=== PATIENT | female | born 1965 | race Caucasian/White ===

== ENCOUNTER 2016-09-01 12:50 | Emergency (ER) | payer SELFPAY ==
[2016-09-01 14:03] VITALS: BP 125/80
--- NOTE | 2016-09-01 14:25 | RAD ---
Left knee with patella, 4 views, 09/01/2016: History: Fall, injury No fracture or dislocation is identified. There is mild degenerative change at the patellofemoral articulation. IMPRESSION: No acute bony abnormality is detected.
--- NOTE | 2016-09-01 14:38 | PHYS DOC ---
Past Medical History Past Medical History: Asthma Past Surgical History: Hysterectomy, Tubal ligation, Other Additional Past Surgical Histo: ovary surgery, bladder surgery Alcohol Use: Rarely Drug Use: None Adult General Chief Complaint Chief Complaint: MECHANICAL FALL HPI HPI Patient is a 51 year old female presents emergency department stating that she was walking up or porch last night when she slipped and fell. She states that she had injured her left knee. She states she has increased pain with ambulation. She states that the pain is mainly on the left lateral portion of her leg. She states that she does have some numbness and tingling down her lower extremity. She has been able to ambulate and take Tylenol for the pain and discomfort. She states Tylenol has not helped with the pain. He states that she has not had any previous issues with the leg in the past. Review of Systems Review of Systems Constitutional: Denies fever or chills [] Eyes: Denies change in visual acuity, redness, or eye pain [] HENT: Denies nasal congestion or sore throat [] Respiratory: Denies cough or shortness of breath [] Cardiovascular: No additional information not addressed in HPI [] GI: Denies abdominal pain, nausea, vomiting, bloody stools or diarrhea [] : Denies dysuria or hematuria [] Musculoskeletal: Denies back pain. When the left knee pain and discomfort. Integument: Denies rash or skin lesions [] Neurologic: Denies headache, focal weakness or sensory changes [] Allergies Allergies Allergies Coded Allergies Type Severity Reaction Last Updated Verified egg Allergy Severe Swelling 10/05/14 No Penicillins Allergy Intermediate 10/05/14 No morphine Allergy Mild Nausea and Vomiting 10/05/14 No Physical Exam Physical Exam Constitutional: Well developed, well nourished, no acute distress, non-toxic appearance. [] HENT: Normocephalic, atraumatic, bilateral external ears normal, oropharynx moist, no oral exudates, nose normal. [] Eyes: PERRLA, EOMI, conjunctiva normal, no discharge. [] Neck: Normal range of motion, no tenderness, supple, no stridor. [] Cardiovascular:Heart rate regular rhythm, no murmur [] Lungs & Thorax: Bilateral breath sounds clear to auscultation [] Skin: Warm, dry, no erythema, no rash. [] Back: No tenderness Extremities: Complaint of left knee with lateral tenderness, no cyanosis, no clubbing, ROM intact, no edema. No bruising or discoloration noted. Positive valgus negative Marte negative Aicha. Neurologic: Alert and oriented X 3, normal motor function, normal sensory function, no focal deficits noted. [] Psychologic: Affect normal, judgement normal, mood normal. [] Current Patient Data Vital Signs Vital Signs Date Time Temp Pulse Resp B/P Pulse Ox O2 Delivery O2 Flow Rate FiO2 09/01/16 14:03 97.9 90 18 97 Room Air 97.9 EKG EKG [] Radiology/Procedures Radiology/Procedures [][facility] [address] [place], [place] [id number] IMAGING REPORT Signed PATIENT: NEMESIO BEYER ACCOUNT: [id number] : 1965 LOCATION: ER AGE: 51 SEX: F EXAM STATUS: REG ER ORD. PHYSICIAN: ANGELICA BOOKER NP REASON: fell yesterday PROCEDURE: KNEE LEFT 4V Left knee with patella, 4 views, 09/01/2016: History: Fall, injury No fracture or dislocation is identified. There is mild degenerative change at the patellofemoral articulation. IMPRESSION: No acute bony abnormality is detected. DICTATED and SIGNED BY: KRISTINA ROBLERO MD DATE: 09/01/16 1422 CC: ANGELICA BOOKER [facility]; NO PCP ~ Course & Med Decision Making Course & Med Decision Making Pertinent Labs and Imaging studies reviewed. (See chart for details) X-ray was negative for any bony abnormalities. Patient will be placed in a knee immobilizer with recommendations to follow-up with Dr. Trivedi. Ice packs on 20 minutes off 20 minutes several times a day elevation as much as possible. Tylenol and ibuprofen for pain and discomfort. Patient will be discharged home in stable condition since symptoms to return back to emergency department has been provided. Patient agrees with discharge instructions treatment regimens and follow-up recommendations. [] Dragon Disclaimer Dragon Disclaimer This electronic medical record was generated, in whole or in part, using a voice recognition dictation system. Departure Departure Impression: Primary Impression: Left knee pain Additional Impression: Fall Disposition: HOME, SELF-CARE Condition: STABLE Referrals: NO PCP (PCP) MARGARET TRIVEDI MD Patient Instructions: Fall Prevention and Home Safety, [id number], Knee Immobilizer, [id number], Knee Pain, [id number] Additional Instructions: Activity as tolerated. Tylenol and ibuprofen for pain and discomfort. Ice packs on 20 minutes off 20 minutes several times a day. Elevation as much as possible. With a knee immobilizer until you follow up with orthopedic. Follow-up with orthopedic within the next week. Return back to emergency prior signs symptoms of become worse. Problem Qualifiers ANGELICA BOOKER NP Sep 01, 2016 14:38
== END 2016-09-01 15:01 | disposition home or self-care (01) ==
LOC: ER 12:50
DX: M25.562 Pain in left knee (principal); J45.909 Unspecified asthma, uncomplicated; Z88.5 Allergy status to narcotic agent; Z88.0 Allergy status to penicillin; Z91.012 Allergy to eggs; W01.0XXA Fall on same level from slipping, tripping and stumbling without subsequent striking against object, initial encounter; Y93.89 Activity, other specified; Y92.89 Other specified places as the place of occurrence of the external cause; Y99.8 Other external cause status
CPT/HCPCS: 29505; 73564; 99284-25

== ENCOUNTER 2019-04-24 15:43 | Emergency (ER) | payer SELFPAY ==
[~2019-04-24] VITALS: Ht 170.2 cm; Wt 90.7 kg
[2019-04-24 15:44] VITALS: BP 150/108
[2019-04-24] MEDS ORDERED: KETOROLAC 30 MG/ML VIAL. IM STA (16:40)
[2019-04-24] MEDS ORDERED: ORPHENADRINE CITRATE 60 MG/2 ML VIAL. IM ONE (16:45)
--- NOTE | 2019-04-24 16:50 | PHYS DOC ---
Past Medical History Past Medical History: Asthma Past Surgical History: Hysterectomy, Tubal ligation, Other Additional Past Surgical Histo: ovary surgery, bladder surgery Alcohol Use: Rarely Drug Use: None Adult General Chief Complaint Chief Complaint: BACK PAIN OR INJURY HPI HPI Patient is a 54 year old female that presents after falling down concrete steps onto a concrete pad 4 weeks ago. She states that she fell her lumbar and th oracic spine started hurting. States the pain is progressively gotten worse and that she started having pain shooting down bilateral legs. Rates her pain as 9 out of 10 in severity and sharp that she's been taking Tylenol at home. Denies incontinence. Review of Systems Review of Systems Constitutional: Denies fever or chills [] Eyes: Denies change in visual acuity, redness, or eye pain [] HENT: Denies nasal congestion or sore throat [] Respiratory: Denies cough or shortness of breath [] Cardiovascular: No additional information not addressed in HPI [] GI: Denies abdominal pain, nausea, vomiting, bloody stools or diarrhea [] : Denies dysuria or hematuria. Denies incontinence. Musculoskeletal: Reports back pain radiating down bilateral legs. Integument: Denies rash or skin lesions [] Neurologic: Denies headache, focal weakness or sensory changes [] Endocrine: Denies polyuria or polydipsia [] Complete systems were reviewed and found to be within normal limits, except as documented in this note. Current Medications Current Medications Current Medications Medications (Trade) Dose Ordered Sig/Linda Start Time Stop Time Status Last Admin Dose Admin Ketorolac Tromethamine (Toradol 30mg Vial) 30 mg 1X STAT 04/24/19 16:40 04/24/19 16:42 DC 04/24/19 17:02 30 MG Orphenadrine Citrate (Norflex) 60 mg 1X ONCE 04/24/19 16:45 04/24/19 16:46 DC 04/24/19 17:02 60 MG Allergies Allergies Allergies Coded Allergies Type Severity Reaction Last Updated Verified egg Allergy Severe Swelling 10/05/14 No Penicillins Allergy Intermediate 10/05/14 No morphine Allergy Mild Nausea and Vomiting 10/05/14 No Physical Exam Physical Exam Constitutional: Well developed, well nourished, no acute distress, non-toxic appearance. [] HENT: Normocephalic, atraumatic, bilateral external ears normal, oropharynx moist, no oral exudates, nose normal. [] Eyes: PERRLA, EOMI, conjunctiva normal, no discharge. [] Neck: Normal range of motion, no tenderness, supple, no stridor. [] Abdomen: Bowel sounds normal, soft, no tenderness, no masses, no pulsatile masses. [] Skin: Warm, dry, no erythema, no rash. [] Back: Tenderness to T/L spine. No step-offs. Extremities: No tenderness, no cyanosis, no clubbing, ROM intact, no edema. [] Neurologic: Alert and oriented X 3, normal motor function, normal sensory function, no focal deficits noted. [] Psychologic: Affect normal, judgement normal, mood normal. [] Current Patient Data Vital Signs Vital Signs Date Time Temp Pulse Resp B/P (MAP) Pulse Ox O2 Delivery O2 Flow Rate FiO2 04/24/19 15:44 97.2 99 14 150/108 (122) 96 Room Air 97.2 EKG EKG [] Radiology/Procedures Radiology/Procedures [][facility] [address] [place] [address] IMAGING REPORT Signed PATIENT: NEMESIO BEYER ACCOUNT: [id number] : 1965 LOCATION: ER AGE: 54 SEX: F EXAM STATUS: REG ER ORD. PHYSICIAN: EVERT ELLIS APRN REASON: FELL 4 WEEKS AGO, BACK PAIN PROCEDURE: CT LUMBAR SPINE WO CONTRAST Exam: CT thoracic and lumbar spine without contrast INDICATION: Fall 4 weeks prior TECHNIQUE: Sequential axial images through the thoracic and lumbar spine obtained without IV contrast. Sagittal and coronal reformatted images were reconstructed from the axial data and reviewed. Comparisons: None FINDINGS: Thoracic spine: Vertebral body heights and alignment are well-maintained. Fracture to the thoracic spine is not identified. No significant spondylotic change in the thoracic spine. Visualized paraspinal soft tissues are unremarkable. Lumbar spine: Vertebral body heights and alignment are well-maintained. Fracture to the lumbar spine is not identified. L1-L2: Mild broad-based disc bulge without significant neural foraminal or spinal canal stenosis. L2-L3: Broad-based disc bulge, ligament flavum thickening and facet arthropathy causing mild spinal canal stenosis without significant neural foraminal stenosis. L3-4: Mild broad-based disc bulge, ligament flavum thickening causing mild spinal canal stenosis. No significant neuroforaminal stenosis. L4-L5: Broad-based disc bulge, ligament flavum thickening causing mild to moderate spinal canal stenosis. No significant neuroforaminal stenosis. L5-S1: Broad-based disc bulge somewhat eccentric to the left likely abutting the descending left S1 nerve. No significant neural foraminal stenosis. Several 2 to 3 mm nonobstructing renal calculi are noted bilaterally. Incompletely evaluated hyperattenuating cystic lesion at the upper pole of the left kidney measuring 2.2 cm. IMPRESSION: 1. Negative CT T spine for acute traumatic injury. 2. Negative CT L-spine for acute traumatic injury. 3. Nonobstructing renal calculi 4. A 2.2 cm hypoattenuating cystic lesion at the upper pole of the left kidney which is incompletely characterized on this exam, mildly increased in size compared to study in 2015. This is still likely represents a benign simple cyst, however further evaluation with renal protocol CT or MRI is recommended on nonemergent basis. Exposure: One or more of the following in the visualized dose reduction techniques were utilized for this examination: 1. Automated exposure control 2. Adjustment of the MA and/or KV according to patient size 3. Use of iterative of reconstructive technique Electronically signed by: Minnie Duggan MD (04/24/2019 5:11 PM) [id number] DICTATED and SIGNED BY: MINNIE DUGGAN MD DATE: 04/24/19 0495 Course & Med Decision Making Course & Med Decision Making Pertinent Labs and Imaging studies reviewed. (See chart for details) Will give supportive care and get CT scan of T/L. CT scan shows bulging discs, will have follow up with Neurosurgery. Dragon Disclaimer Dragon Disclaimer This electronic medical record was generated, in whole or in part, using a voice recognition dictation system. Departure Departure Impression: Primary Impression: Back pain Disposition: 01 HOME, SELF-CARE Condition: STABLE Referrals: NO PCP (PCP) JENSEN AGUILAR MD Patient Instructions: Back Pain, Adult Additional Instructions: Thank you for visiting [facility]. We appreciate you trusting us with your care. If any additional problems come up don't hesitate to return to visit us. Please follow up with your primary care provider so they can plan additional care if needed and know about the problem that you had. If symptoms worsen come back to the Emergency Department. Any concerning symptoms that start such as chest pain, shortness of air, weakness or numbness on one side of the body, running high fevers or any other concerning symptoms return to the ER. Scripts Ondansetron (ONDANSETRON ODT) 4 Mg Tab.rapdis 1 TAB PO PRN Q6-8HRS PRN for NAUSEA, #16 TAB Prov: EVERT ELLIS APRN 04/24/19 Hydrocodone/Apap 5-325 (NORCO 5-325 TABLET) 1 Each Tablet 1 TAB PO PRN Q6HRS PRN for PAIN for 3 Days, #10 TAB 0 Refills Prov: EVERT ELLIS APRN 04/24/19 Problem Qualifiers Primary Impression: Back pain Back pain location: low back pain Chronicity: acute Back pain laterality: bilateral Sciatica presence: with sciatica Sciatica laterality: bilateral sciatica Qualified Codes: M54.42 - Lumbago with sciatica, left side; M54.41 - Lumbago with sciatica, right side EVERT ELLIS APRN Apr 24, 2019 16:50
--- NOTE | 2019-04-24 17:14 | RAD ---
Exam: CT thoracic and lumbar spine without contrast INDICATION: Fall 4 weeks prior TECHNIQUE: Sequential axial images through the thoracic and lumbar spine obtained without IV contrast. Sagittal and coronal reformatted images were reconstructed from the axial data and reviewed. Comparisons: None FINDINGS: Thoracic spine: Vertebral body heights and alignment are well-maintained. Fracture to the thoracic spine is not identified. No significant spondylotic change in the thoracic spine. Visualized paraspinal soft tissues are unremarkable. Lumbar spine: Vertebral body heights and alignment are well-maintained. Fracture to the lumbar spine is not identified. L1-L2: Mild broad-based disc bulge without significant neural foraminal or spinal canal stenosis. L2-L3: Broad-based disc bulge, ligament flavum thickening and facet arthropathy causing mild spinal canal stenosis without significant neural foraminal stenosis. L3-4: Mild broad-based disc bulge, ligament flavum thickening causing mild spinal canal stenosis. No significant neuroforaminal stenosis. L4-L5: Broad-based disc bulge, ligament flavum thickening causing mild to moderate spinal canal stenosis. No significant neuroforaminal stenosis. L5-S1: Broad-based disc bulge somewhat eccentric to the left likely abutting the descending left S1 nerve. No significant neural foraminal stenosis. Several 2 to 3 mm nonobstructing renal calculi are noted bilaterally. Incompletely evaluated hyperattenuating cystic lesion at the upper pole of the left kidney measuring 2.2 cm. IMPRESSION: 1. Negative CT T spine for acute traumatic injury. 2. Negative CT L-spine for acute traumatic injury. 3. Nonobstructing renal calculi 4. A 2.2 cm hypoattenuating cystic lesion at the upper pole of the left kidney which is incompletely characterized on this exam, mildly increased in size compared to study in 2015. This is still likely represents a benign simple cyst, however further evaluation with renal protocol CT or MRI is recommended on nonemergent basis. Exposure: One or more of the following in the visualized dose reduction techniques were utilized for this examination: 1. Automated exposure control 2. Adjustment of the MA and/or KV according to patient size 3. Use of iterative of reconstructive technique Electronically signed by: Minnie Fischer MD (04/24/2019 5:11 PM) [facility]
[2019-04-24] MEDS ORDERED: HYDR-3164 PO (17:55)
[2019-04-24] MEDS ORDERED: ONDA4TAB12 PO (17:56)
[2019-04-24] MEDS ORDERED: fentaNYL PF VIAL 100 MCG/2 ML VIAL IM ONE (18:00)
== END 2019-04-24 18:08 | disposition home or self-care (01) ==
LOC: ER 15:43
DX: M54.42 Lumbago with sciatica, left side (principal); M54.41 Lumbago with sciatica, right side; J45.909 Unspecified asthma, uncomplicated; Z88.5 Allergy status to narcotic agent; Z88.0 Allergy status to penicillin; Z91.012 Allergy to eggs; Z90.710 Acquired absence of both cervix and uterus; Z98.51 Tubal ligation status
CPT/HCPCS: 72128; 72131; 96372; 99284; J1885; J2360; J3010

== ENCOUNTER → 2019-09-15 | Outpatient (CLI) | payer MEDICAID ==
[~2019-09-15] MED LIST: HYDR-3164 PO; ONDA4TAB12 PO
--- NOTE | 2019-09-19 08:38 | RAD ---
History: Routine screening. Technique: Bilateral digital mammographic routine views were obtained with CAD - computer aided detection. Comparison: None. By report, last mammogram was in 2006. This will serve as a new baseline. Findings: Breast Tissue Density B :The breast tissue is composed of mixed fatty and fibroglandular tissue. There are no suspicious masses, microcalcifications or areas of architectural distortion. Benign nodular parenchymal pattern. Impression: Benign findings on screening mammogram. BI-RADS Category 2: Benign. Recommend screening in 1 year. A mammogram does not have 100% sensitivity and therefore a negative imaging study should not delay further work up of a suspicious abnormality. The patient will receive a letter with the results in the mail. Patient information is entered into the reminder system with a target due date for the next screening mammogram. The patient will receive a reminder. "Our facility is accredited by the [employer] Mammography Program."
== END | disposition home or self-care (01) ==
LOC: MAMMO 10:15
PROVIDERS: ATTEND Family Medicine
DX: Z12.31 Encounter for screening mammogram for malignant neoplasm of breast (principal)
CPT/HCPCS: 77067

== ENCOUNTER → 2020-10-04 | Outpatient (CLI) | payer MEDICAID ==
--- NOTE | 2020-10-04 15:02 | RAD ---
Examination: 1. Bilateral digital diagnostic mammogram. 2. Limited left breast ultrasound. INDICATION: 55-year-old woman with bilateral diffuse breast tenderness and left nipple yellow dischar ge. This follows having recently begun contraceptive medication. COMPARISON: None. This will serve as a baseline. TECHNIQUE: CC and MLO views of both breasts were obtained with 2-D technique and reviewed with comput er-aided detection. Targeted ultrasound of the subareolar left breast was subsequently performed. FINDINGS: Heterogeneously dense breast parenchyma. No dominant mass, architectural distortion or suspicious chandra cifications. Targeted ultrasound of the subareolar left breast shows sonographically benign subareolar ducts and c ysts with no dominant mass or suspicious sonographic findings. IMPRESSION: Benign findings on bilateral mammogram and targeted left breast ultrasound. No evidence of malignancy . No specific imaging correlate to the patient's complaints of bilateral breast pain and left nipple discharge. BI-RADS Category 2 Benign findings Recommend clinical management for bilateral breast discomfort and left nipple discharge. If there are any clinically suspicious findings, they should be considered for biopsy even in the absence of any imaging correlate. If there are no clinically suspicious findings, then routine screening next due in one year is recommended. Electronically signed by: Diego Leon MD (10/04/2020 3:00 PM) [id number]
== END ==
LOC: MAMMO 12:44
PROVIDERS: ATTEND Family Medicine
DX: N64.52 Nipple discharge (principal); N64.4 Mastodynia
CPT/HCPCS: 76641; 77066

== ENCOUNTER → 2020-10-26 | Outpatient (CLI) | payer MEDICAID ==
--- NOTE | 2020-10-26 09:15 | RAD ---
EXAM: Abdomen sonogram. HISTORY: Pain. TECHNIQUE: Sonographic imaging of the abdomen was performed. COMPARISON: None. FINDINGS: The liver is upper normal in size. There is hepatic steatosis. No focal hepatic lesion is s een. The common bile duct is obscured. The gallbladder is unremarkable. The kidneys are normal in siz e. There is no hydronephrosis. There is a 2.0 cm simple appearing cyst within the superior left kidne y. The spleen is mildly enlarged, measuring 13.1 cm. The pancreas is partially obscured due to bowel gas. The aorta and inferior cava are unremarkable. IMPRESSION: 1. Hepatic steatosis and upper normal liver size. 2. Mild splenomegaly. 3. 2.0 cm simple appearing cyst within the left kidney. Follow-up is not routinely performed for simp le cysts. Electronically signed by: Seble Renee MD (10/26/2020 9:13 AM) [id number]
== END ==
LOC: US 09:27
PROVIDERS: ATTEND Family Medicine
DX: K76.0 Fatty (change of) liver, not elsewhere classified (principal); R16.1 Splenomegaly, not elsewhere classified
CPT/HCPCS: 76700

== ENCOUNTER → 2021-05-23 | Outpatient (CLI) | payer MEDICAID ==
--- NOTE | 2021-05-23 10:38 | RAD ---
EXAM: Pelvis and left hip, 3 views. HISTORY: Pain. COMPARISON: None. FINDINGS: A frontal view the pelvis and 2 views of the left hip are obtained. There is moderate left hip joint space narrowing. There is severe marginal left femoral head spurring. There is flattening o f the superior articular aspect of the left femoral head. The right femoral head is normal in configu ration. IMPRESSION: 1. Severe osteoarthritis of the left hip with associated flattening of the superior articular aspect of the femoral head. 2. No acute osseous finding. Electronically signed by: Seble Renee MD (05/23/2021 10:35 AM) [id number]
== END ==
LOC: RAD 09:36
PROVIDERS: ATTEND Family Medicine
DX: M16.12 Unilateral primary osteoarthritis, left hip (principal); M76.892 Other specified enthesopathies of left lower limb, excluding foot
CPT/HCPCS: 73502

== ENCOUNTER → 2021-05-29 | Outpatient (CLI) | payer MEDICAID ==
--- NOTE | 2021-05-29 13:15 | RAD ---
EXAM: 1. LUMBAR SPINE 3 VIEWS. 2. FRONTAL PELVIS WITH TWO-VIEW RIGHT HIP. HISTORY: Low back and right hip pain COMPARISON: 10/05/2014. FINDINGS: There is a mild lumbar levocurvature. Vertebral body heights are maintained, and no fractur es are identified. Intervertebral disc heights are maintained. Osteopenia appears at least mild. Calcific densities in the right upper quadrant are consistent with calcified right lower lobe granulo mas and phleboliths on CT. There are atherosclerotic calcifications of the aorta. No fractures are appreciated within the pelvis. There is mild flattening of the superior articular mosqueda rface of the left femoral head with moderate osteophytosis. The superior joint space is moderately to severely narrowed. The joint spaces and alignment of the right hip are maintained. There are suture lines along both pelvic sidewalls, likely reflecting bilateral ovarian kidney. IMPRESSION: 1. No lumbar fracture or clear degenerative change for patient age. 2. Moderate left hip osteoarthritis. Mild flattening of the superior aspect of the left femoral head suggests prior avascular necrosis with mild articular surface collapse. 3. No clear degenerative change at the right hip. Electronically signed by: Annel Cleveland MD (05/29/2021 1:12 PM) [id number]
== END ==
LOC: RAD 09:51
PROVIDERS: ATTEND Family Medicine
DX: M43.8X6 Other specified deforming dorsopathies, lumbar region (principal); M85.88 Other specified disorders of bone density and structure, other site; M16.12 Unilateral primary osteoarthritis, left hip; I70.0 Atherosclerosis of aorta
CPT/HCPCS: 72100; 73502

== ENCOUNTER → 2021-08-05 | Outpatient (CLI) | payer MEDICAID ==
[~2021-08-05] MED LIST changes: +ALEN70TA71 PO; +ALPR0.5T6 PO; +CRESTOR5 MG PO; +DICL20GE TP; +NAPR-683 PO; +PREG150C PO; +SERT50TA PO; +TRAZ-118 PO; +VENTOLIN HFA18 GM INH
[2021-08-05 09:16] LABS: ALBUMIN 3.8 g/dL (3.4-5.0); ALBUMIN/GLOBULIN RATIO 1.2 (1.0-1.7); CALCIUM 8.7 mg/dL (8.5-10.1); CREATININE 0.8 mg/dL (0.6-1.0); GFR 74.2; POTASSIUM 4.1 mmol/L (3.5-5.1); TOTAL BILIRUBIN 0.4 mg/dL (0.2-1.0)
--- NOTE | 2021-08-05 12:06 | EKG ---
[facility] [address] [place] [address] Test Date: 2021-08-05 Test Time: 11:40:39 Pat Name: CHEL BEYER Department: Room: Gender: F [employer]: : 1965 Requested By: SIM PAIGE Order Number: [id number] Reading MD: Jonathan Sosa MD Measurements Intervals [place] Rate: 54 P: 36 [place]: 202 QRS: 35 QRSD: 84 T: 47 QT: 442 QTc: 421 Interpretive Statements SINUS RHYTHM Electronically Signed On 08-08-2021 10:26:39 BUSINESS LIAISON MANAGER by Jonathan Sosa MD
== END ==
LOC: LAB 12:07
PROVIDERS: ATTEND Family Medicine
DX: Z01.818 Encounter for other preprocedural examination (principal); G31.84 Mild cognitive impairment of uncertain or unknown etiology
CPT/HCPCS: 36415; 80053; 82607; 82746; 84443; 93005

== ENCOUNTER → 2021-08-05 | Outpatient (CLI) | payer MEDICAID ==
[2021-08-05 10:22] LABS: BASO % 1 % (0-3); EOS # 0.1 x10^3/uL (0.0-0.7); EOS % 3 % (0-3); HEMATOCRIT 38.3 % (36.0-47.0); HEMOGLOBIN 12.6 g/dL (12.0-15.5); LYMPH # 1.2 x10^3/uL (1.0-4.8); LYMPH % 25 % (24-48); MEAN CORPUSCULAR HEMOGLOBIN 28 pg (25-35); MEAN CORPUSCULAR HGB CONC 33 g/dL (31-37); MEAN CORPUSCULAR VOLUME 87 fL (79-100); MONO # 0.3 x10^3/uL (0.0-1.1); MONO % 7 % (0-9); NEUT # 3.3 x10^3/uL (1.8-7.7); NEUT % 66 % (31-73); PLATELET COUNT 214 x10^3/uL (140-400); RED BLOOD COUNT 4.43 x10^6/uL (3.50-5.40); RED CELL DISTRIBUTION WIDTH 13.8 % (11.5-14.5)
[2021-08-05 10:33] LABS: PROTHROMBIN TIME PATIENT 13.2 SEC (11.7-14.0)
--- NOTE | 2021-08-05 12:33 | RAD ---
EXAM: Chest, 2 views. HISTORY: Hypertension. COMPARISON: None. FINDINGS: 2 views of the chest are obtained. There is no infiltrate, pleural effusion or pneumothorax . The heart is normal in size. IMPRESSION: No acute pulmonary finding. Electronically signed by: Seble Renee MD (08/05/2021 12:30 PM) [id number]
[2021-08-05 23:32] LABS: HEMOGLOBIN A1C 5.5 % (4.8-5.6)
== END ==
LOC: SURGPAT 12:01
PROVIDERS: ATTEND Orthopaedic Surgery
DX: M16.10 Unilateral primary osteoarthritis, unspecified hip (principal); Z01.818 Encounter for other preprocedural examination
CPT/HCPCS: 36415; 71046; 82040; 82306; 83036; 85025; 85610; 85651; 85730; 87641; 93005

== ENCOUNTER 2021-09-02 09:49 | Inpatient (IN) | payer MEDICAID ==
[2021-08-07 12:20] VITALS: BP 106/71
[2021-09-02] VITALS (10 sets, daily range): BP systolic 88–110; BP diastolic 54–68
[~2021-09-02] VITALS: Ht 175.3 cm; Wt 99.0 kg
[~2021-09-02 09:49] MED LIST changes: +ACETAMINOPHEN 500 MG TABLET PO PRN; +CLINDAMYCIN 900MG PREMIX 50 ML IV PRN; +GABAPENTIN 300 MG CAPSULE. PO PRN; +IV RINGERS,LACTATED 1000ML 1,000 ML IV SCH; +MELOXICAM 7.5 MG TABLET PO PRN; +PROCHLORPERAZINE 10 MG/2 ML VIAL. IVP PRN; +TRANEXAMIC ACID 1,000 MG in IV NS 50ML -- 1ST BAG INJ ONE; +TRANEXAMIC ACID 1,000 MG in IV NS 50ML -- 2ND BAG INJ ONE; +TV=62ml MORPHINE 5 MG, KETOROLAC 30 MG, ROPIV, EPI INT ART ONE; +fentaNYL PF VIAL 100 MCG/2 ML VIAL IVP PRN
[2021-09-02] MEDS ORDERED: VANCOMYCIN 1 GM VIAL. ONE (10:48)
[2021-09-02] MEDS ORDERED: TRANEXAMIC ACID in NS IVPB 100 ML ONE (10:48)
[2021-09-02] MEDS ORDERED: ROCURONIUM 50 MG/5 ML VIAL. ONE (10:53)
[2021-09-02] MEDS ORDERED: ONDANSETRON PF 4 MG/2 ML VIAL. ONE (10:53)
[2021-09-02] MEDS ORDERED: DEXAMETHASONE SOD PHOS 4 MG/ML VIAL ONE (10:53)
[2021-09-02] MEDS ORDERED: LIDOCAINE 2% PF 5 ML VIAL. ONE (10:53)
[2021-09-02] MEDS ORDERED: PROPOFOL 10 MG/ML (20ML) VIAL. IV ONE ×2 (10:53→10:56)
[2021-09-02] MEDS ORDERED: FAMOTIDINE 20 MG/2 ML VIAL ONE (10:54)
[2021-09-02] MEDS ORDERED: MIDAZOLAM HCL/PF 2 MG/2 ML VIAL. ONE (10:54)
[2021-09-02] MEDS ORDERED: fentaNYL PF VIAL 100 MCG/2 ML VIAL ONE ×2 (10:54→13:39)
--- NOTE | 2021-09-02 10:55 | HP ---
DATE OF SERVICE: 09/02/2021 ADMIT DATE: 09/02/2021 REASON FOR HISTORY AND PHYSICAL: Continued left hip pain, preop left total hip arthroplasty, seen last by Dr. Pagan with no acute changes according to the patient. She is a 56-year-old female who was complaining of continued and ongoing left hip pain. At the age of 13 or 14, she did undergo what sounds like an open reduction and internal fixation with pin fixation of a subcapital possible slipped capital femoral epiphysis fracture; however, this healed uneventfully, no big issues, but over the last 13 years, she has had increasing amounts of pain, especially with bending, twisting or even getting dressed at this point. She has only the prior pinning, which subsequent pins were removed at that point. REVIEW OF SYSTEMS: Unremarkable other than this left hip pain. MEDICAL HISTORY: Involves degenerative joint disease, asthma, fibromyalgia, depression, anxiety, PTSD, hemorrhoidectomy, colon resection. PAST SURGICAL HISTORY: Tonsillectomy, total abdominal hysterectomy, removal of ovary, bladder surgery, left hip pin placement, x 1. FAMILY HISTORY: Remarkable for diabetes, hypertension, mental illness and CVA. SOCIAL HISTORY: The patient has never used tobacco. Alcohol use is no. MEDICATIONS: Numerous, Crestor, esterase, sertraline, alprazolam, Naprosyn, methocarbamol, alendronate, trazodone, albuterol inhaler, Lyrica. MEDICATION ALLERGIES: PENICILLIN, MORPHINE, EGGS AND ABILIFY. PHYSICAL EXAMINATION: Today reveals no contracture of significance at this point, but only can flex up to 90 degrees, internal rotation is 0 degrees, external rotation is 0-5 degrees, abduction is only 15 and there is significant pain throughout the arc of motion at this point. No atrophy of musculature, right versus left and the distal neurovascular status is fully intact. IMPRESSION: Severe degenerative joint disease, left hip. PLAN: At this time, I have talked with the patient at length about treatment options, she wishes to go ahead today and undergo left total hip replacement. Dr. Pagan, her physician understands that as well and has agreed and has medically cleared her. We will proceed. SIMBA DR: Jarett TID: [id number]
[2021-09-02] MEDS: IV NORMAL SALINE 1000ML BAG 1,000 ML IV SCH ×2 (11:15→16:25)
[2021-09-02] MEDS ORDERED: CALCIUM CARBONATE 500 MG TAB.CHEW PO PRN (11:15)
[2021-09-02] MEDS ORDERED: fentaNYL PF VIAL 100 MCG/2 ML VIAL IVP PRN (11:15)
[2021-09-02] MEDS ORDERED: PROCHLORPERAZINE 5 MG TABLET. PO PRN (11:15)
[2021-09-02] MEDS ORDERED: METOCLOPRAMIDE HCL 10 MG/2 ML VIAL. IVP PRN (11:15)
[2021-09-02] MEDS ORDERED: 0.9 % SODIUM CHLORIDE 10 ML DISP.SYRIN. IV PRN (11:15)
[2021-09-02] MEDS ORDERED: DEXTROSE 50% 25 GM / 50ML DISP.SYRIN. IV PRN (11:15)
[2021-09-02] MEDS ORDERED: diphenhydrAMINE 50 MG/ML VIAL IVP PRN (11:15)
[2021-09-02] MEDS ORDERED: ZOLPIDEM 5 MG TABLET. PO PRN (11:15)
[2021-09-02] MEDS ORDERED: HYDROmorphone 2 MG/ML INJ. ONE (11:39)
[2021-09-02] MEDS ORDERED: GLYCOPYRROLATE 1 MG/5 ML VIAL. ONE (11:48)
[2021-09-02] MEDS ORDERED: NEOSTIGMINE METHYLSULFATE 5 MG/5 ML SYRINGE. ONE (11:48)
[2021-09-02] MEDS ORDERED: niCARdipine INJ. IV ONE (11:50)
[2021-09-02] MEDS ORDERED: 0.9 % SODIUM CHLORIDE 20 ML VIAL. IJ ONE (11:52)
[2021-09-02] MEDS: ONDANSETRON PF 4 MG/2 ML VIAL. IVP SCH ×2 (12:00→16:22)
[2021-09-02] MEDS: SENNOSIDES/DOCUSATE 8.6/50MG TABLET. PO SCH (12:00)
[2021-09-02] MEDS: MULTIVITAMIN with MINERAL TABLET. PO SCH (12:00)
[2021-09-02] MEDS: ONDANSETRON ODT 4 MG TAB.RAPDIS. PO SCH ×2 (12:00→18:00)
[2021-09-02] MEDS ORDERED: PHENYLEPHRINE in 0.9% NACL PF 1 MG/10 ML SYRINGE. IV ONE (12:10)
--- NOTE | 2021-09-02 13:35 | OP ---
DATE OF SURGERY: 09/02/2021 PREOPERATIVE DIAGNOSIS: Severe degenerative joint disease, left hip. POSTOPERATIVE DIAGNOSIS: Severe degenerative joint disease, left hip. PROCEDURE: Left total hip arthroplasty. SURGEON: Donnie Dean Jr, DO PAPER REEL OPERATOR: Tom Wu. ANESTHESIA: General. COMPLICATIONS: None. ESTIMATED BLOOD LOSS: 400 mL DESCRIPTION OF PROCEDURE: The patient was taken to the operative suite, placed in a lateral decubitus position with the affected hip upright. This was padded appropriately. The left hip was then prepped and draped in a sterile fashion. Standard anterolateral approach to the hip was undertaken. Incision was made through skin and subcutaneous tissues down to the iliotibial band, which was split in line with the skin incision. Scar was removed from all areas around the hip joint and capsule itself and the retraction was undertaken. Following this, the portion of the gluteus medius and minimus were removed from their insertion in the greater trochanter. This was approximately the lower 50% of the musculature. This was retracted anteriorly and the capsule was identified. Again, a significant amount of scar tissue was noted about the area; however, after appropriate retraction, the capsule was opened up in an H fashion carefully. The hip was then subsequently dislocated and then the femoral head was measured; however, the 48 was noted to be the smaller size whereas the head actually in the outer portion measured approximately 52. From that; however, the appropriate cut was made for the femur. This was removed. The remainder of the labral tissue was removed from the acetabulum and after that was done reaming began at size 46 and continued up to 2 mm increments and then 1 mm increments starting at 49 and 50 was noted to be the most appropriate size. Therefore, the hip prosthesis was then impacted and noted to be stable. Three screws, however, were placed for further fixation of the cup. Following this, the acetabular component was noted to be good and stable and in positioning and reinspected and irrigated and suctioned dry and then the polyethylene was impacted and noted to be secured. Attention was then directed to the femur. The hot box operator was used to open up the femoral canal. The IM guide was placed followed by broaching began at size 0 and continued up to size 5. The hip was then relocated, taken through full range of motion. The +2.5 was noted to be the most stable. Therefore, all this was removed, the actual component was placed and put in appropriate position at this point. After the trial was done again, this was again noted to be +2.5 mm. This was then subsequently relocated, noted to be very stable throughout extremes in the arc of motion with flexion, extension, internal and external rotation. Since this was noted to be stable and the head was already affixed and noted to be stable, this was thoroughly irrigated, iodine was used for first irrigation, second irrigation was to remove this all from the joint. The capsule was then reapproximated. The gluteus medius and minimus were reapproximated into the appropriate positions. The IT band was then reapproximated using running suture, followed by 3 intermittent sutures for reinforcement. Superficial tissues and skin was reapproximated. Sterile dressing was applied. The patient was then taken from the operative bed to the postoperative bed, taken to the PACU in stable condition. JULIANNA DR: Jarett TID: [id number]
[2021-09-02] MEDS ORDERED: PROCHLORPERAZINE 10 MG/2 ML VIAL. ONE (13:39)
--- NOTE | 2021-09-02 14:58 | RAD ---
AP pelvis radiograph to include AP radiograph of the left hip 09/02/2021 CLINICAL HISTORY: History of left hip surgery. An AP digital radiograph of pelvis to include both hips obtained. AP digital radiographs left hip was obtained. Patient is post left MAURILIO. The prosthetic components are intact. No fracture or dislocation is seen. IMPRESSION: Post left MAURILIO. No acute osseous abnormality is seen. Electronically signed by: Bari Carmona MD (09/02/2021 2:05 PM) [id number]
[2021-09-02] MEDS: oxyCODONE IR 5 MG TABLET PO PRN ×2 (15:55→22:55)
[2021-09-02] MEDS ORDERED: DICLOFENAC SODIUM 1% TOPICAL GEL 100GM TUBE. TP PRN (16:00)
[2021-09-02] MEDS ORDERED: ALPRAZolam 0.5 MG TABLET PO PRN (16:00)
[2021-09-02] MEDS: CLINDAMYCIN 900MG PREMIX 50 ML IV SCH ×2 (16:22→22:56)
[2021-09-02] MEDS: FERROUS SULFATE 325 MG TABLET. PO SCH (16:22)
--- NOTE | 2021-09-02 18:18 | NUR ---
non-administered 1800 Zofran PO. Zofran was given IV push
[2021-09-02] MEDS: traZODone 50 MG TABLET. PO SCH (21:03)
[2021-09-02] MEDS: PREGABALIN 75 MG CAPSULE PO SCH (21:04)
[2021-09-02] MEDS: ATORVASTATIN CALCIUM 40 MG TABLET. PO SCH (21:05)
[2021-09-03 03:00] VITALS: BP 105/52
[2021-09-03] MEDS: ONDANSETRON PF 4 MG/2 ML VIAL. IVP SCH ×2 (05:36)
[2021-09-03] MEDS: ONDANSETRON ODT 4 MG TAB.RAPDIS. PO SCH ×2 (05:36)
[2021-09-03] MEDS: CLINDAMYCIN 900MG PREMIX 50 ML IV SCH (05:36)
[2021-09-03] MEDS: oxyCODONE IR 5 MG TABLET PO PRN ×5 (05:41→20:44)
[2021-09-03] MEDS ORDERED: MAGNESIUM HYDROXIDE 2,400 MG/30 ML ORAL.SUSP. PO PRN (06:00)
[2021-09-03 07:00] VITALS: BP 113/57
[2021-09-03] MEDS: PREGABALIN 75 MG CAPSULE PO SCH ×2 (09:34→20:43)
[2021-09-03] MEDS: ACETAMINOPHEN 500 MG TABLET PO SCH ×3 (09:34→20:43)
[2021-09-03] MEDS: MULTIVITAMIN with MINERAL TABLET. PO SCH (09:34)
[2021-09-03] MEDS: SERTRALINE 50 MG TABLET. PO SCH (09:35)
[2021-09-03] MEDS: SENNOSIDES/DOCUSATE 8.6/50MG TABLET. PO SCH (09:35)
[2021-09-03] MEDS: FERROUS SULFATE 325 MG TABLET. PO SCH ×2 (09:35→17:05)
[2021-09-03 11:00] VITALS: BP 77/45
[2021-09-03] MEDS ORDERED: ONDANSETRON PF 4 MG/2 ML VIAL. IVP PRN (12:00)
[2021-09-03] MEDS ORDERED: ONDANSETRON ODT 4 MG TAB.RAPDIS. PO PRN (12:00)
[2021-09-03] MEDS: ASPIRIN ENTERIC COATED 325 MG TABLET.DR. PO SCH ×2 (12:57→20:43)
[2021-09-03 15:00] VITALS: BP 82/48
[2021-09-03] MEDS ORDERED: BISACODYL 10 MG SUPP.RECT. PR PRN (16:00)
[2021-09-03 19:00] VITALS: BP 95/50
[2021-09-03] MEDS: ATORVASTATIN CALCIUM 40 MG TABLET. PO SCH (20:44)
[2021-09-03] MEDS: traZODone 50 MG TABLET. PO SCH (20:44)
[2021-09-03] MEDS: METHOCARBAMOL 750 MG TABLET PO PRN (20:44)
[2021-09-03 23:07] VITALS: BP 103/62
[2021-09-04 03:20] VITALS: BP 94/42
[2021-09-04] MEDS: METHOCARBAMOL 750 MG TABLET PO PRN ×2 (04:52→16:30)
[2021-09-04] MEDS: oxyCODONE IR 5 MG TABLET PO PRN ×3 (04:52→16:30)
[2021-09-04] MEDS: ACETAMINOPHEN 500 MG TABLET PO SCH ×4 (04:52→20:31)
[2021-09-04 04:54] VITALS: BP 101/48
[2021-09-04 07:00] VITALS: BP 87/52
[2021-09-04 07:05] LABS: HEMATOCRIT 29.4 % (36.0-47.0); HEMOGLOBIN 9.6 g/dL (12.0-15.5)
[2021-09-04] MEDS: ASPIRIN ENTERIC COATED 325 MG TABLET.DR. PO SCH ×2 (08:56→20:31)
[2021-09-04] MEDS: FERROUS SULFATE 325 MG TABLET. PO SCH ×2 (08:56→16:30)
[2021-09-04] MEDS: SENNOSIDES/DOCUSATE 8.6/50MG TABLET. PO SCH (08:56)
[2021-09-04] MEDS: MULTIVITAMIN with MINERAL TABLET. PO SCH (08:57)
[2021-09-04] MEDS: PREGABALIN 75 MG CAPSULE PO SCH ×2 (08:57→20:31)
[2021-09-04] MEDS: SERTRALINE 50 MG TABLET. PO SCH (08:58)
[2021-09-04 10:46] VITALS: BP 93/54
--- NOTE | 2021-09-04 10:55 | PDOC ---
[facility] PROGRESS NOTE Date of Service DOS: DATE: 09/04/21 TIME: 10:47 Chief Complaint Chief Complaint OA left total hip replacement History of Present Illness History of Present Illness REASON FOR HISTORY AND PHYSICAL: Continued left hip pain, preop left total hip arthroplasty, seen last by Dr. Pagan with no acute changes according to the patient. She is a 56-year-old female who was complaining of continued and ongoing left hip pain. At the age of 13 or 14, she did undergo what sounds like an open reduction and internal fixation with pin fixation of a subcapital possible slipped capital femoral epiphysis fracture; however, this healed uneventfully, no big issues, but over the last 13 years, she has had increasing amounts of pain, especially with bending, twisting or even getting dressed at this point. She has only the prior pinning, which subsequent pins were removed at that point. 09/04 Patient seen and examined. Patient is p/o day 2 s/p left total hip replacement. Will start on fluids to help elevate blood pressure. Chart Reviewed Discussed with RN Vitals/I&O Vitals/I&O: Vital Signs Date Time Temp Pulse Resp B/P (MAP) Pulse Ox O2 Delivery O2 Flow Rate FiO2 09/04/21 08:00 Room Air 3.0 09/04/21 07:00 98.4 103 18 87/52 (64) 95 98.4 I & O 09/03/21 09/03/21 09/04/21 15:00 23:00 07:00 Intake Total 300 ml Balance 300 ml Labs Labs: Laboratory Tests Test 09/04/21 06:30 Hemoglobin 9.6 g/dL (12.0-15.5) Hematocrit 29.4 % (36.0-47.0) Mean Corpuscular Hemoglobin Concent 33 g/dL (31-37) Assessment and Plan Assessmemt and Plan Assessment: OA left total hip replacement Plan: Start NS for her hypotension Wound Care PT/OT Prn pain meds Trend labs and vitals Home meds DVT prophylaxis Full code Encourage incentive spirometry Comment Review of Relevant I have reviewed the following items alok (where applicable) has been applied. Medications: Current Medications Medications (Trade) Dose Ordered Sig/Linda Route PRN Reason Start Time Stop Time Status Last Admin Dose Admin Aspirin (Ecotrin) 325 mg BID PO 09/03/21 11:00 09/04/21 08:56 Methocarbamol (Robaxin) 750 mg PRN Q6HRS PRN PO MUSCLE SPASMS 09/03/21 19:00 09/04/21 04:52 Justifications for Admission Other Justification MAXWELL STATON III DO Sep 04, 2021 10:55
[2021-09-04 19:00] VITALS: BP 88/47
[2021-09-04] MEDS: IV NORMAL SALINE 1000ML BAG 1,000 ML IV SCH ×2 (20:29→20:30)
[2021-09-04] MEDS: ATORVASTATIN CALCIUM 40 MG TABLET. PO SCH (20:31)
[2021-09-04] MEDS: traZODone 50 MG TABLET. PO SCH (20:32)
[2021-09-04 23:08] VITALS: BP 100/55
[2021-09-05] MEDS: IV NORMAL SALINE 1000ML BAG 1,000 ML IV SCH ×3 (00:20→13:40)
[2021-09-05] MEDS: METHOCARBAMOL 750 MG TABLET PO PRN (01:37)
[2021-09-05] MEDS: oxyCODONE IR 5 MG TABLET PO PRN (01:38)
[2021-09-05] MEDS: ACETAMINOPHEN 500 MG TABLET PO SCH ×4 (03:00→20:35)
[2021-09-05 03:20] VITALS: BP 100/49
[2021-09-05 04:30] LABS: HEMATOCRIT 24.8 % (36.0-47.0); HEMOGLOBIN 8.4 g/dL (12.0-15.5)
[2021-09-05 07:00] VITALS: BP 106/56
[2021-09-05] MEDS: FERROUS SULFATE 325 MG TABLET. PO SCH ×3 (08:00→18:48)
[2021-09-05] MEDS: PREGABALIN 75 MG CAPSULE PO SCH ×3 (08:58→20:32)
[2021-09-05] MEDS: SENNOSIDES/DOCUSATE 8.6/50MG TABLET. PO SCH ×2 (08:58→09:00)
[2021-09-05] MEDS: MULTIVITAMIN with MINERAL TABLET. PO SCH ×3 (08:58→18:47)
[2021-09-05] MEDS: SERTRALINE 50 MG TABLET. PO SCH ×2 (08:58→09:00)
[2021-09-05] MEDS: ASPIRIN ENTERIC COATED 325 MG TABLET.DR. PO SCH ×2 (09:00→20:32)
--- NOTE | 2021-09-05 09:00 | NUR ---
complaining of feeling nauseated and doesn't want any oral medications or pills. doesn't want her iv restarted. complains of headache. medicated with Zofran.up in recliner.
--- NOTE | 2021-09-05 09:55 | PDOC ---
[facility] PROGRESS NOTE Date of Service DOS: DATE: 09/05/21 TIME: 09:51 Chief Complaint Chief Complaint OA left total hip replacement History of Present Illness History of Present Illness REASON FOR HISTORY AND PHYSICAL: Continued left hip pain, preop left total hip arthroplasty, seen last by Dr. Pagan with no acute changes according to the patient. She is a 56-year-old female who was complaining of continued and ongoing left hip pain. At the age of 13 or 14, she did undergo what sounds like an open reduction and internal fixation with pin fixation of a subcapital possible slipped capital femoral epiphysis fracture; however, this healed uneventfully, no big issues, but over the last 13 years, she has had increasing amounts of pain, especially with bending, twisting or even getting dressed at this point. She has only the prior pinning, which subsequent pins were removed at that point. 09/04 Patient seen and examined. Patient is p/o day 2 s/p left total hip replacement. Will start on fluids to help elevate blood pressure. Chart Reviewed Discussed with RN 09/05 Patient seen and examined. Patient still complains of pain. Patient is p/o day 3 s/p left total hip replacement. Chart Reviewed Discussed with RN Vitals/I&O Vitals/I&O: Vital Signs Date Time Temp Pulse Resp B/P (MAP) Pulse Ox O2 Delivery O2 Flow Rate FiO2 09/05/21 07:00 98.4 101 18 106/56 (73) 90 Room Air 98.4 09/04/21 23:08 3.0 I & O 09/04/21 09/04/21 09/05/21 14:59 22:59 06:59 Intake Total 400 ml 800 ml Balance 400 ml 800 ml Labs Labs: Laboratory Tests Test 09/05/21 03:30 Hemoglobin 8.4 g/dL (12.0-15.5) Hematocrit 24.8 % (36.0-47.0) Mean Corpuscular Hemoglobin Concent 34 g/dL (31-37) Assessment and Plan Assessmemt and Plan OA left total hip replacement Plan: Discharge to home health tomorrow, possible with [place] For now continue: Wound Care PT/OT Prn pain meds Trend labs and vitals Home meds DVT prophylaxis Full code Encourage incentive spirometry Comment Review of Relevant I have reviewed the following items alok (where applicable) has been applied. Justifications for Admission Other Justification MAXWELL STATON III DO Sep 05, 2021 09:54
[2021-09-05 11:00] VITALS: BP 95/56
--- NOTE | 2021-09-05 12:30 | NUR ---
continues to be nauseated. medicated with compazine. still has headache. able to keep pears down. #22 used to start ivf in her right hand with NS infusing at 100cc hr.
[2021-09-05 15:00] VITALS: BP 102/66
--- NOTE | 2021-09-05 15:48 | NUR ---
returns from therapy. she states she feels a little better. given tylenol per request. refused zofran. returned to bed. will continue iv fluids at this time.
--- NOTE | 2021-09-05 16:08 | PATHOLOGY ---
[facility] Accession Number: [id number] . 01 Material submitted: . femur - LEFT FEMORAL HEAD. Modifiers: left, head, HIP . 01 Clinical history: . L TOTAL HIP ARTHROPLASTY . 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 (JPM:mary; 09/05/2021) QMS 09/05/2021 1555 Local . 02 Electronically signed: . Benny Concepcion MD, Pathologist NPI- [id number] . 01 Gross description: . The specimen is received in formalin, labeled "Yari Quintanilla, left greater trochanter", however the specimen consists of a femoral head without an attached greater trochanter. The specimen type has been verified by Artem Kerr on 09/04/2021 with the corrected specimen type of "Left femoral head". . The specimen consists of a femoral head (5.5 x 0.9 x 3.7 cm) with an attached portion of femoral neck (1.7 cm in length by 3.7 cm diameters) and a moderate amount of attached soft tissue. The articular surface is nuñez-brown, smooth and focally roughened and displays an area of eburnation (5.7 x 2.8 cm) as well as numerous osteophytic growths. A focal area of partial articular surface detachment and softening (0.9 x 0.5 cm) is identified. . Also received in the same container are multiple nuñez-foley rubbery irregular portions of connective tissue (6.0 x 4.4 x 1.5 cm in aggregate). Sectioning reveals unremarkable rubbery cut surfaces. Edge Stitcher sections are submitted in A1-A2 following decalcification as follows: A1: Eburnation, osteophytic growths and portion of connective tissue, represented A2: Articular surface softening and partial detachment and portion of connective tissue, represented ([place]; 09/04/2021) DKA/DKA 09/05/2021 1244 Local . 02 Pathologist provided ICD-10: M16.12 . 02 CPT . 733125, [id number] Specimen Comment: A courtesy copy of this report has been sent to [phone] Specimen Comment: Report sent to Specimen Comment: A duplicate report has been generated due to demographic updates. Performed at: 01 [facility] [address], [place] [id number] MD Thai Martínez MD Phone: [phone] Performed at: 02 [facility] [address] [place], [place] [id number] MD Benny Concepcion MD Phone: [phone]
[2021-09-05] MEDS ORDERED: BISACODYL 10 MG SUPP.RECT. PR ONE (18:15)
[2021-09-05 19:20] VITALS: BP 89/53
[2021-09-05] MEDS: ATORVASTATIN CALCIUM 40 MG TABLET. PO SCH (20:32)
[2021-09-05] MEDS: traZODone 50 MG TABLET. PO SCH (20:32)
[2021-09-05 22:57] VITALS: BP 114/69
[2021-09-06] MEDS: ACETAMINOPHEN 500 MG TABLET PO SCH ×2 (03:00→07:55)
[2021-09-06] MEDS: IV NORMAL SALINE 1000ML BAG 1,000 ML IV SCH ×2 (03:00→10:05)
[2021-09-06 03:04] VITALS: BP 109/59
[2021-09-06 07:00] VITALS: BP 124/76
[2021-09-06] MEDS: ASPIRIN ENTERIC COATED 325 MG TABLET.DR. PO SCH (07:54)
[2021-09-06] MEDS: SENNOSIDES/DOCUSATE 8.6/50MG TABLET. PO SCH (07:55)
[2021-09-06] MEDS: SERTRALINE 50 MG TABLET. PO SCH (07:56)
[2021-09-06] MEDS: PREGABALIN 75 MG CAPSULE PO SCH (07:56)
--- NOTE | 2021-09-06 10:13 | PDOC ---
[facility] PROGRESS NOTE Date of Service DOS: DATE: 09/06/21 TIME: 10:08 Chief Complaint Chief Complaint 1.OA 2. Left total hip replacement History of Present Illness History of Present Illness REASON FOR HISTORY AND PHYSICAL: Continued left hip pain, preop left total hip arthroplasty, seen last by Dr. Pagan with no acute changes according to the patient. She is a 56-year-old female who was complaining of continued and ongoing left hip pain. At the age of 13 or 14, she did undergo what sounds like an open reduction and internal fixation with pin fixation of a subcapital possible slipped capital femoral epiphysis fracture; however, this healed uneventfully, no big issues, but over the last 13 years, she has had increasing amounts of pain, especially with bending, twisting or even getting dressed at this point. She has only the prior pinning, which subsequent pins were removed at that point. 09/04 Patient seen and examined. Patient is p/o day 2 s/p left total hip replacement. Will start on fluids to help elevate blood pressure. Chart Reviewed Discussed with RN 09/05 Patient seen and examined. Patient still complains of pain. Patient is p/o day 3 s/p left total hip replacement. Chart Reviewed Discussed with RN 09/06/21 Patient seen and examined Chart reviewed Discussed with RN Patient is much more comfortable today and less nauseous, was able to eat breakfast this AM. Discussed plan to discharge with home health. Vitals/I&O Vitals/I&O: Vital Signs Date Time Temp Pulse Resp B/P (MAP) Pulse Ox O2 Delivery O2 Flow Rate FiO2 09/06/21 08:00 Room Air 09/06/21 07:00 99.2 105 16 124/76 (92) 91 99.2 I & O 09/05/21 09/05/21 09/06/21 15:00 23:00 07:00 Intake Total 240 ml Balance 240 ml Assessment and Plan Assessmemt and Plan Assessment: 1. OA 2. Left total hip replacement Plan: 1. Plan to discharge with home health today For now continue: Wound Care PT/OT PRN pain meds Trend labs and vitals Home meds DVT prophylaxis Full code Encourage incentive spirometry Comment Review of Relevant I have reviewed the following items alok (where applicable) has been applied. Medications: Current Medications Medications (Trade) Dose Ordered Sig/Linda Route PRN Reason Start Time Stop Time Status Last Admin Dose Admin Bisacodyl (Dulcolax Supp) 10 mg 1X ONCE OK 09/05/21 18:15 09/05/21 18:16 DC 09/05/21 18:19 Justifications for Admission Other Justification MAXWELL STATON III DO Sep 06, 2021 10:13
--- NOTE | 2021-09-06 10:25 | SNU/HH DC ---
DISCHARGE WITH HOME HEALTH DISCHARGE INFORMATION: Condition on Discharge: Stable CODE STATUS: Code Status: Full HOME HEALTH: Face to Face: I certify this patient is under my care and that I, or a nurse practitioner or physician's social and human services assistant working with me, had a face to face encounter that meets the physician face to face encounter requirements with this patient on []. Medical Complications: Other (Recent left hip replacement) Alf For: Assess & Educate Safety RN For Eval/Treatment: Yes Physical Therapy For: Evalulation/Treatment Occupational Therapy For: Evaluation/Treatment Home Health Aide For: Self-care [employer] DEPARTMENT MANAGER For: Community Resources Pt Meets Homebound Status: Poor coordination w/ amb. POST DISCHARGE ORDERS: Activity Instructions for Disc: Walk in house Weight Bearing Status after Di: No restrictions, Full weight bearing, As tolerated Bathing Instructions: Shower-keep dressing dry, No Tub Bath until see Dr. CONWAY AFTER DISCHARGE: Cardiac Wound/Incision Care: Ice to area for comfort, Keep wound/cast CDI, Keep wound elevated, Do not change dressing Other wound/incision instructi: use walker at all times follow the therapists instructions CHECKS AFTER DISCHARGE: Comment: will be on aspirin 325mg 1 tablet twice a day for FOLLOW-UP: Follow Up With: Keon/Byron 09/09 at 0900 with Luzma at [facility] if need to reschedule call [phone] Warfarin Follow UP: on aspirin for 30 days TREATMENT/EQUIPMENT ORDERS: Adaptive Equipment Issued: Front wheeled walker CERTIFICATION STATEMENT: Certification Statement: Certification Statement: Based on the above finding, I certify that this patient is confined to the home and needs intermittent fdc care, physical therapy and/or speech therapy, or continues to need occupational therapy.~ This patient is under my care, and I have initiated the establishment of the plan of care.~ This patient will be followed by myself or a community physician who will periodically review the plan of care. Home Meds Reported Medications Pregabalin (LYRICA) 150 Mg Capsule, 150 MG PO BID for numbness/tingling for 30 Days, #60 CAP 0 Refills 08/07/21 Diclofenac Sodium (Voltaren Arthritis Pain) 20 Gm Gel..gram., 20 GM TP PRN DAILY PRN for pain control, EACH 08/07/21 Alendronate Sodium (ALENDRONATE SODIUM) 70 Mg Tablet, 70 MG PO WEEKLY for osteoporosis, TAB 08/07/21 Naproxen (NAPROSYN) 500 Mg Tablet, 500 MG PO BID for pain control, TAB 08/07/21 Alprazolam (ALPRAZOLAM) 0.5 Mg Tablet, 0.5 MG PO PRN Q6HRS PRN for ANXIETY / AGITATION, TAB 0 Refills 08/07/21 Sertraline Hcl (ZOLOFT) 50 Mg Tablet, 150 MG PO DAILY for ANTI-DEPRESSANT, TAB 0 Refills 08/07/21 Rosuvastatin Calcium (CRESTOR) 5 Mg Tablet, 10 MG PO HS for FOR CHOLESTEROL, #30 TAB 0 Refills 08/07/21 Trazodone Hcl (TRAZODONE HCL) 50 Mg Tablet, 50 MG PO HS for sleep aid, TAB 08/07/21 Albuterol Sulfate (VENTOLIN HFA INHALER) 18 Gm Hfa.aer.ad, 2 PUFF INH 2-3XD for FOR ASTHMA, EACH 0 Refills 08/07/21 MAXWELL STATON III DO Sep 06, 2021 10:25
--- NOTE | 2021-09-06 11:25 | DS ---
DATE OF DISCHARGE: 09/06/2021 ADMITTING DIAGNOSIS: Osteoarthritis with left hip degenerative joint disease. DISCHARGE DIAGNOSIS: Postop left hip replacement. HOSPITAL COURSE: The patient is a pleasant, middle-aged female who has left hip osteoarthritis. She was admitted electively for surgery for replacement of the left hip. Today, she is postop day 3, doing well. I saw her and examined her. We plan to discharge home. DISPOSITION: Home. ACTIVITY: As tolerated. DIET: Low sodium. MEDICATIONS: Please see the MRAD. Albuterol, alendronate 70 a week, alprazolam 0.5 q.6, Voltaren gel, Naprosyn 500 b.i.d., Lyrica 150 b.i.d., Crestor 10 a day, Zoloft 150 a day and trazodone 50 at bedtime and p.r.n. Tylenol. TOTAL TIME: 32 minutes. CHAN/LAYLA DR: Eliecer TID: [id number]
[2021-09-06 11:58] LABS: HEMATOCRIT 27.9 % (36.0-47.0); HEMOGLOBIN 9.3 g/dL (12.0-15.5)
--- NOTE | 2021-09-06 12:19 | NUR ---
Patient left around 1210 with her . MAYRA CDI and working properly with education on the care of the dressing instructed to the patient. IV removed. NO pain medication sent to patients pharmacy per her request. Patient instructed to poultry picker asa 325mg and take it twice a day for 30 days. Follow up appointment reviewed. Discharge educations gone over in detail with no concerns noted.
== END 2021-09-06 12:20 | disposition home health service (06) | DRG 470 ==
LOC: SURG 09:49 → 4 NORTH 10:26
PROVIDERS: ADMIT Orthopaedic Surgery; ATTEND Orthopaedic Surgery
PROC: 0SRB0JZ Replacement of Left Hip Joint with Synthetic Substitute, Open Approach (ICD-10-PCS; principal; 2021-09-02 11:30)
DX: M16.12 Unilateral primary osteoarthritis, left hip (principal); Z82.3 Family history of stroke; Z82.49 Family history of ischemic heart disease and other diseases of the circulatory system; Z83.3 Family history of diabetes mellitus; Z90.710 Acquired absence of both cervix and uterus; Z88.0 Allergy status to penicillin; Z91.012 Allergy to eggs; Z91.040 Latex allergy status; Z90.49 Acquired absence of other specified parts of digestive tract
CPT/HCPCS: 36415; 72170; 73501; 85014; 85018; 86850; 86900; 86901; 88304; 88311; A4213; A4930; A6258; A6550; C1776; G0379; J0171; J0780; J1100; J1170; J1885; J2250; J2270; J2370; J2405; J2704; J2710; J2795; J3010; J3370; J3490; J7030; 97110-GP; 97116-GP; 97150-GP; 97530-GO; 97530-GP; 97535-GO; Q0164

== ENCOUNTER → 2021-10-07 | Outpatient (CLI) | payer MEDICAID ==
[~2021-10-07] MED LIST changes: -ACETAMINOPHEN 500 MG TABLET PO PRN; -CLINDAMYCIN 900MG PREMIX 50 ML IV PRN; -GABAPENTIN 300 MG CAPSULE. PO PRN; -IV RINGERS,LACTATED 1000ML 1,000 ML IV SCH; -MELOXICAM 7.5 MG TABLET PO PRN; -PROCHLORPERAZINE 10 MG/2 ML VIAL. IVP PRN; -TRANEXAMIC ACID 1,000 MG in IV NS 50ML -- 1ST BAG INJ ONE; -TRANEXAMIC ACID 1,000 MG in IV NS 50ML -- 2ND BAG INJ ONE; -TV=62ml MORPHINE 5 MG, KETOROLAC 30 MG, ROPIV, EPI INT ART ONE; -fentaNYL PF VIAL 100 MCG/2 ML VIAL IVP PRN
--- NOTE | 2021-10-07 12:50 | RAD ---
INDICATION : Routine Screening. COMPARISON: [facility] including August 2019 TECHNIQUE: Standard mammogram screening views of the bilateral breasts were obtained. CAD was utilize d. FINDINGS: The breasts are scattered density. No definite suspicious mass. IMPRESSION: BI-RADS Category 1: Negative. Recommend repeat screening examination in one year. The patient was placed into the recall system with a suggested recall date for follow up imaging. Mammography is the most sensitive method for finding small breast cancers, but it does not detect the m all and is not a substitute for careful clinical examination. A negative mammogram does not negate a clinically suspicious finding and should not result in delay in biopsying a clinically suspicious abnormality. Electronically signed by: Zay Chappell MD (10/07/2021 12:48 PM) [id number]
== END ==
LOC: MAMMO 12:32
PROVIDERS: ATTEND Family Medicine
DX: Z12.31 Encounter for screening mammogram for malignant neoplasm of breast (principal)
CPT/HCPCS: 77067

== ENCOUNTER 2022-01-03 05:39 | Day surgery (SDC) | payer MEDICAID ==
[~2022-01-03] VITALS: Ht 175.3 cm; Wt 97.0 kg
[~2022-01-03 05:39] MED LIST changes: +FLUT9.9S NS; +LORA10TA68 PO
[2022-01-03 05:59] VITALS: BP 155/81
[2022-01-03] MEDS ORDERED: IV RINGERS,LACTATED 1000ML 1,000 ML IV SCH (06:00)
[2022-01-03] MEDS ORDERED: fentaNYL PF VIAL 100 MCG/2 ML VIAL IVP PRN ×2 (06:00)
[2022-01-03] MEDS ORDERED: PROCHLORPERAZINE 10 MG/2 ML VIAL. IVP PRN (06:00)
[2022-01-03] MEDS ORDERED: ONDANSETRON PF 4 MG/2 ML VIAL. ONE (07:03)
[2022-01-03] MEDS ORDERED: PROPOFOL 10 MG/ML (20ML) VIAL. IV ONE (07:03)
[2022-01-03] MEDS ORDERED: MIDAZOLAM HCL/PF 2 MG/2 ML VIAL. ONE (07:03)
[2022-01-03] MEDS ORDERED: DEXAMETHASONE SOD PHOS 4 MG/ML VIAL ONE (07:03)
[2022-01-03] MEDS ORDERED: fentaNYL PF VIAL 100 MCG/2 ML VIAL ONE (07:04)
[2022-01-03] MEDS ORDERED: LIDOCAINE 2% PF 5 ML VIAL. ONE (07:05)
[2022-01-03] MEDS ORDERED: SUCCINYLCHOLINE 200 MG/10 ML VIAL. ONE (07:31)
[2022-01-03] MEDS ORDERED: ROCURONIUM 50 MG/5 ML VIAL. ONE (07:31)
[2022-01-03] MEDS ORDERED: CLINDAMYCIN 900MG PREMIX 50 ML IV ONE ×2 (07:43→07:45)
--- NOTE | 2022-01-03 07:58 | PDOC4 ---
OPERATIVE NOTE Date: Date: January 03, 2022 Pre-Op Diagnosis: Superficial skin abscess suture left hip Post-Op Diagnosis: Same Procedure Performed: I&D with removal subcutaneous suture left hip Surgeon: Jermaine Anesthesia Type: General Blood Loss: 5 cc Specimans Obtained: Intraoperative cultures Findings: See dictation Complications: None Operative Note: Patient was taken operative suite given a general acetic placed supine upon the operating room table the left hip region and specially the area of the incision was prepped and draped in a sterile fashion elliptical incision was made around and through the actual site of the suture abscess. This was noted to be superficial to the iliotibial band. This is an area of approximately 1 and half to 2 cm in diameter there was some mild purulence from that area therefore this was cultured immediately. Debridement of the underlying tissues was undertaken and again there was no deep fissure there were no other further abnormalities therefore this was thoroughly irrigated. After this was irrigated and reinspected this was closed in interrupted fashion. Sterile dressing was applied patient was then taken from the operative bed to the postoperative bed taken to the PACU in stable condition SIM PAIGE Jr. DO January 03, 2022 07:58
[2022-01-03] MEDS ORDERED: OXYC5TAB2 PO (07:59)
[2022-01-03] MEDS ORDERED: ONDA4TAB12 PO (07:59)
[2022-01-03] MEDS ORDERED: DOXY100T27 PO (07:59)
--- NOTE | 2022-01-03 08:02 | DISCH ---
DISCHARGE INSTRUCTIONS Condition on Discharge Condition on Discharge: Stable Activity After Discharge Activity Instructions for Disc: Resume previous activity, Avoid exertion, Walk in house Bathing Instructions: Shower-keep dressing dry, No Tub Bath until see Lifting Instructions after Dis: No heavy lifting Exercise Instruction after Dis: Walk 10 min, 3 x per day, Exercise per therapy, Progress as tolerated Driving Instructions after Dis: Do not drive (while taking narcotic pain meds) Weight Bearing Status after Di: No restrictions, Full weight bearing, As tolerated Diet after Discharge Diet after Discharge: Regular Diet Texture: Regular Wound Incision Care Wound/Incision Care: Ice to area for comfort, Keep wound/cast CDI, Keep wound elevated, Do not change dressing Contacting the DROfelia after DC Call your doctor for: If your condition worsens Follow-Up Follow up with: with clinic in 1-2 weeks [phone] Treatment/Equipment after DC Adaptive Equipment Issued: Front wheeled walker TIM CARRERA January 03, 2022 08:02
[2022-01-03 08:35] VITALS: BP 135/80
[2022-01-03] MEDS ORDERED: SEVOFLURANE 16 TO 30 MINUTES. IH ONE (09:08)
== END 2022-01-03 08:48 | disposition home or self-care (01) ==
LOC: SURG 05:39
PROVIDERS: ATTEND Orthopaedic Surgery
DX: L02.416 Cutaneous abscess of left lower limb (principal); M01.X59 Direct infection of unspecified hip in infectious and parasitic diseases classified elsewhere; J45.909 Unspecified asthma, uncomplicated; M19.90 Unspecified osteoarthritis, unspecified site; F41.9 Anxiety disorder, unspecified; F32.9 Major depressive disorder, single episode, unspecified; M81.0 Age-related osteoporosis without current pathological fracture; Z90.710 Acquired absence of both cervix and uterus; Z98.51 Tubal ligation status; Z98.890 Other specified postprocedural states; Z79.899 Other long term (current) drug therapy
CPT/HCPCS: 10061; 87075; 87077; 87147; 87186; A4930; J1100; J2250; J2405; J2704; J3010; J3490; A4223; J0330